=== PATIENT | female | born 1995 | race Caucasian/White ===

== ENCOUNTER → 2023-03-08 | Outpatient (CLI) | payer OTHER ==
[2023-03-08 19:47] LABS: Albumin, Blood 4.3 g/dL (3.4-5.0); Bilirubin, Total 0.5 mg/dL (0.1-1.0); Bun/Creatinine Ratio 14.7 (12.0-20.0); Calcium, Blood 9.6 mg/dL (8.5-10.1); Creatinine, Blood 0.68 mg/dL (0.40-1.00); Globulin, Blood 4.2 g/dL (2.2-4.0); Potassium, Blood 3.2 mmol/L (3.5-5.5); Total Protein, Blood 8.5 g/dL (6.4-8.2)
== END ==
LOC: LAB 12:43 → LAB SHORT 12:43
PROVIDERS: Physician Assistant
DX: B35.1 Tinea unguium (principal)
CPT/HCPCS: 80053

== ENCOUNTER → 2023-10-09 | Outpatient (CLI) | payer SELFPAY ==
[2023-10-09 10:46] LABS: BASOPHILS ABSOLUTE AUTO 0.06 K/mm3 (0.00-0.23); BASOPHILS PERCENT AUTO 1 % (0-2); EOSINOPHILS PERCENT AUTO 1 % (0-6); Hematocrit 36.5 % (33.0-51.0); Hemoglobin 12.3 g/dL (11.5-16.0); IMMATURE GRAN ABSOLUTE AUTO 0.03 K/mm3 (0.00-0.10); IMMATURE GRAN PERCENT AUTO 0 % (0-1); LYMPHOCYTES ABSOLUTE AUTO 2.09 K/mm3 (0.84-5.20); LYMPHOCYTES PERCENT AUTO 20 % (21-46); MONOCYTES PERCENT AUTO 6 % (4-13); Mean Corpuscular HGB Conc 33.7 g/dL (31.5-36.5); Mean Corpuscular Volume 89 fL (80-100); Mean Platelet Volume 9.7 fL (9.1-12.4); NEUTROPHILS ABSOLUTE AUTO 7.43 K/mm3 (1.96-9.15); NEUTROPHILS PERCENT AUTO 72 % (41-73); Platelet Count 324 K/mm3 (150-400); RDW Coefficient Variation 13.2 % (11.7-14.2); RDW Standard Deviation 43.1 fL (35.1-46.3); White Blood Cell Count 10.31 K/mm3 (4.00-11.30)
[2023-10-09 11:19] LABS: Albumin, Blood 3.5 g/dL (3.4-5.0); Albumin/Globulin Ratio 0.9 (0.8-1.8); Bilirubin, Total 0.4 mg/dL (0.1-1.0); Bun/Creatinine Ratio 15.5 (12.0-20.0); Creatinine, Blood 0.58 mg/dL (0.40-1.00); Globulin, Blood 3.9 g/dL (2.2-4.0); Potassium, Blood 3.7 mmol/L (3.5-5.5); Total Protein, Blood 7.4 g/dL (6.4-8.2)
== END | disposition home or self-care (01) ==
LOC: LAB SHORT 09:45
PROVIDERS: Physician Assistant
DX: R06.00 Dyspnea, unspecified (principal); Z33.1 Pregnant state, incidental
CPT/HCPCS: 80053; 83880; 84702; 85025; 85379

== ENCOUNTER → 2024-03-01 | Outpatient (CLI) | payer OTHER ==
[2024-03-01 10:12] LABS: Protein, Urine Quantitative 5.5 mg/dL (0.0-11.9)
== END ==
LOC: LAB 05:00 → LAB SHORT 05:00
PROVIDERS: Advanced Practice Midwife
DX: O09.91 Supervision of high risk pregnancy, unspecified, first trimester (principal)
CPT/HCPCS: 81050; 84156

== ENCOUNTER → 2024-09-17 | Outpatient (CLI) | payer OTHER | END | disposition home or self-care (01) | LOC: LAB SHORT 10:08 → LAB 10:08 | DX: O09.90 Supervision of high risk pregnancy, unspecified, unspecified trimester (principal) | CPT/HCPCS: 87081; 87150 ==

== ENCOUNTER 2024-10-15 18:52 | Inpatient (IN) | payer OTHER ==
[~2024-10-15] VITALS: Ht 167.6 cm; Wt 137.7 kg
[2024-10-15 19:21] VITALS: BP 151/79
[2024-10-15] MEDS ORDERED: OXYTOCIN/RINGER'S LACTATE 500 ML IV SCH ×2 (19:25→22:40)
[2024-10-15] MEDS ORDERED: Lactated Ringer's 1,000 ML IV SCH ×3 (19:25→20:40)
[2024-10-15] MEDS ORDERED: Misoprostol 25 MCG Tab VAG PRN (19:25)
[2024-10-15] MEDS ORDERED: ASPI81CH PO (19:47)
[2024-10-15] MEDS ORDERED: PRENATAL TABLE1 EAC2 PO (19:48)
[2024-10-15 20:07] LABS: BASOPHILS ABSOLUTE AUTO 0.04 K/mm3 (0.00-0.23); BASOPHILS PERCENT AUTO 0 % (0-2); EOSINOPHILS ABSOLUTE AUTO 0.07 K/mm3 (0.00-0.68); EOSINOPHILS PERCENT AUTO 1 % (0-6); Hematocrit 33.9 % (33.0-51.0); Hemoglobin 11.7 g/dL (11.5-16.0); IMMATURE GRAN ABSOLUTE AUTO 0.04 K/mm3 (0.00-0.10); IMMATURE GRAN PERCENT AUTO 0 % (0-1); LYMPHOCYTES ABSOLUTE AUTO 2.81 K/mm3 (0.84-5.20); LYMPHOCYTES PERCENT AUTO 24 % (21-46); MONOCYTES ABSOLUTE AUTO 0.78 K/mm3 (0.16-1.47); MONOCYTES PERCENT AUTO 7 % (4-13); Mean Corpuscular HGB 30.3 pg (26.0-34.0); Mean Corpuscular HGB Conc 34.5 g/dL (31.5-36.5); Mean Corpuscular Volume 88 fL (80-100); Mean Platelet Volume 11.2 fL (9.1-12.4); NEUTROPHILS ABSOLUTE AUTO 7.78 K/mm3 (1.96-9.15); NEUTROPHILS PERCENT AUTO 68 % (41-73); Platelet Count 224 K/mm3 (150-400); RDW Coefficient Variation 13.8 % (11.7-14.2); Red Blood Cell Count 3.86 M/mm3 (3.80-5.20); White Blood Cell Count 11.52 K/mm3 (4.00-11.30)
[2024-10-15 20:10] VITALS: BP 144/75
[2024-10-15 20:30] VITALS: BP 142/70
[2024-10-15] MEDS ORDERED: Ondansetron HCl 2 MG / ML 2ML Vial IV PRN (20:40)
[2024-10-15] MEDS ORDERED: Tranexamic Acid 100 ML IV SCH (20:40)
[2024-10-15] MEDS ORDERED: Lactated Ringer's 1,000 ML IV PRN (20:40)
[2024-10-15] MEDS ORDERED: Misoprostol 200 MCG Tab BC PRN (20:40)
[2024-10-15] MEDS ORDERED: Acetaminophen 500 MG Tab PO PRN (20:40)
[2024-10-15] MEDS ORDERED: ePHEDrine Sulfate 50 MG/ML 1ML Injection XX PRN (20:40)
[2024-10-15] MEDS ORDERED: Methylergonovine Maleate 0.2MG / ML 1ML Amp IM PRN (20:40)
[2024-10-15] MEDS ORDERED: Misoprostol 200 MCG Tab PR PRN (20:40)
[2024-10-15] MEDS ORDERED: Calcium Carbonate 500 MG Tab Chew PO PRN (20:40)
[2024-10-15] MEDS ORDERED: FentaNYL 2mcg/ml-Bup 0.1% Epd 250 ML EPI PRN (20:40)
[2024-10-15] MEDS ORDERED: Oxytocin 10 Unit / ML Vial IM PRN (20:40)
[2024-10-15] MEDS ORDERED: Carboprost Tromethamine 250 MCG/ML 1ML Amp IM PRN (20:40)
[2024-10-15] MEDS ORDERED: FentaNYL Citrate 50 MCG/ML 2 ML Injection IV PRN (20:40)
[2024-10-15] MEDS ORDERED: OXYTOCIN/RINGER'S LACTATE 500 ML IV PRN (20:40)
[2024-10-15 20:45] VITALS: BP 139/78
[2024-10-15 20:51] LABS: Albumin, Blood 2.8 g/dL (3.4-5.0); Albumin/Globulin Ratio 0.7 (0.8-1.8); Bilirubin, Total 0.4 mg/dL (0.1-1.0); Bun/Creatinine Ratio 15.5 (12.0-20.0); Calcium, Blood 8.7 mg/dL (8.5-10.1); Creatinine, Blood 0.58 mg/dL (0.40-1.00); Globulin, Blood 4.2 g/dL (2.2-4.0); Potassium, Blood 3.5 mmol/L (3.5-5.5)
[2024-10-15] MEDS ORDERED: DiphenhydrAMINE HCL 25 MG Cap PO PRN (22:40)
[2024-10-15 22:55] VITALS: BP 142/77
[2024-10-16] VITALS (44 sets, daily range): BP systolic 111–158; BP diastolic 55–84
[2024-10-16] MEDS ORDERED: Lactated Ringer's 1,000 ML IV SCH ×2 (12:00)
[2024-10-16] MEDS ORDERED: ePHEDrine Sulfate 50 MG/ML 1ML Injection XX PRN (12:00)
[2024-10-16] MEDS ORDERED: FentaNYL 2mcg/ml-Bup 0.1% Epd 250 ML EPI PRN (12:00)
[2024-10-16] MEDS ORDERED: OXYTOCIN/RINGER'S LACTATE 500 ML IV SCH (15:05)
[2024-10-16] MEDS ORDERED: Misoprostol 25 MCG Tab PO SCH (22:21)
[2024-10-17] VITALS (36 sets, daily range): BP systolic 116–159; BP diastolic 56–133
[2024-10-17] MEDS ORDERED: Lactated Ringer's 1,000 ML IV SCH ×2 (12:00→18:05)
[2024-10-17] MEDS ORDERED: Azithromycin 500 MG in NS 250 ML IV SCH (16:05)
[2024-10-17] MEDS ORDERED: CeFAZolin Sodium 3,000 MG in NS 100 ML IV SCH (16:05)
[2024-10-17] MEDS ORDERED: Citric Acid/Sodium Citrate 30 ML BTL ONE (16:06)
[2024-10-17] MEDS ORDERED: Metoclopramide HCl 5MG / ML 2ML Vial ONE (16:06)
[2024-10-17] MEDS ORDERED: Lidocaine 2% 5 ML SDV ONE (16:21)
[2024-10-17] MEDS ORDERED: Oxytocin 10 Unit / ML Vial ONE (16:30)
[2024-10-17] MEDS ORDERED: Tranexamic Acid 100 ML IV ONE (16:49)
[2024-10-17] MEDS ORDERED: Midazolam HCl 1MG / ML 2ML Vial ONE (17:09)
[2024-10-17] MEDS ORDERED: FentaNYL Citrate 50 MCG/ML 2 ML Injection ONE (17:09)
[2024-10-17 17:25] LABS: PCO2 Cord - Arterial 48.7 mmHg (40-50); PO2 Cord - Arterial 31.7 mmHg (16-20)
[2024-10-17 17:26] LABS: PO2 Cord - Venous 15.7 mmHg (28-32); pH Umbilical Cord - Venous 7.29 (7.26-7.35)
[2024-10-17] MEDS ORDERED: Simethicone 80 MG Chew PO PRN (18:00)
[2024-10-17] MEDS ORDERED: DiphenhydrAMINE HCL 25 MG Cap PO PRN (18:00)
[2024-10-17] MEDS ORDERED: Promethazine HCl 25 MG Tab PO PRN (18:00)
[2024-10-17] MEDS ORDERED: Ketorolac Tromethamine 30mg Vial IV SCH (18:00)
[2024-10-17] MEDS ORDERED: Acetaminophen 500 MG Tab PO PRN (18:05)
[2024-10-17] MEDS ORDERED: Ondansetron HCl 2 MG / ML 2ML Vial IV PRN (18:05)
[2024-10-17] MEDS ORDERED: Carboprost Tromethamine 250 MCG/ML 1ML Amp IM PRN (18:05)
[2024-10-17] MEDS ORDERED: Misoprostol 200 MCG Tab PR PRN (18:05)
[2024-10-17] MEDS ORDERED: Magnesium Hydroxide Conc 10 ML UDC PO PRN (18:05)
[2024-10-17] MEDS ORDERED: Metoclopramide HCl 10 MG Tab PO PRN (18:05)
[2024-10-17] MEDS ORDERED: Lanolin Cream TOP PRN (18:10)
[2024-10-17] MEDS ORDERED: OxyCODONE HCL 5 MG TAB PO PRN (18:10)
[2024-10-17] MEDS ORDERED: FentaNYL Citrate 50 MCG/ML 2 ML Injection IV ONE (19:00)
[2024-10-17] MEDS ORDERED: FentaNYL Citrate 50 MCG/ML 2 ML Injection IV PRN (19:00)
--- NOTE | 2024-10-17 19:18 | NUR ---
10/17/241917 LATASHA ORTIZ VIABLE FEMALE BORN AT 1641. APGARS 9/9. CORD GASSES SENT WITH RT FLY GRIFFIN.
[2024-10-17] MEDS ORDERED: fentaNYL citrate 20 MCG/ML 30MLSYR IV PRN (20:10)
[2024-10-17] MEDS ORDERED: FentaNYL Citrate 50 MCG/ML 2 ML Injection IV SCH (20:20)
[2024-10-17] MEDS ORDERED: Docusate Sodium 100 MG Cap PO SCH (21:00)
[2024-10-17 22:21] LABS: Hematocrit 26.3 % (33.0-51.0); Hemoglobin 9.2 g/dL (11.5-16.0); Mean Corpuscular HGB 30.1 pg (26.0-34.0); Mean Corpuscular Volume 86 fL (80-100); Mean Platelet Volume 10.9 fL (9.1-12.4); Platelet Count 205 K/mm3 (150-400); RDW Coefficient Variation 14.1 % (11.7-14.2); RDW Standard Deviation 43.8 fL (35.1-46.3); Red Blood Cell Count 3.06 M/mm3 (3.80-5.20); White Blood Cell Count 23.03 K/mm3 (4.00-11.30)
[2024-10-17 22:58] LABS: Prothrombin Time Results 10.7 Sec (9.7-11.5)
[2024-10-18] VITALS (9 sets, daily range): BP systolic 100–132; BP diastolic 49–60
[2024-10-18] MEDS ORDERED: Ibuprofen 400 MG Tab PO SCH
[2024-10-18 06:05] LABS: BASOPHILS ABSOLUTE AUTO 0.04 K/mm3 (0.00-0.23); BASOPHILS PERCENT AUTO 0 % (0-2); EOSINOPHILS ABSOLUTE AUTO 0.04 K/mm3 (0.00-0.68); EOSINOPHILS PERCENT AUTO 0 % (0-6); Hematocrit 24.1 % (33.0-51.0); Hemoglobin 8.4 g/dL (11.5-16.0); IMMATURE GRAN ABSOLUTE AUTO 0.12 K/mm3 (0.00-0.10); IMMATURE GRAN PERCENT AUTO 1 % (0-1); LYMPHOCYTES ABSOLUTE AUTO 2.33 K/mm3 (0.84-5.20); LYMPHOCYTES PERCENT AUTO 14 % (21-46); MONOCYTES ABSOLUTE AUTO 1.25 K/mm3 (0.16-1.47); MONOCYTES PERCENT AUTO 7 % (4-13); Mean Corpuscular HGB 30.5 pg (26.0-34.0); Mean Corpuscular HGB Conc 34.9 g/dL (31.5-36.5); Mean Corpuscular Volume 88 fL (80-100); Mean Platelet Volume 10.9 fL (9.1-12.4); NEUTROPHILS PERCENT AUTO 78 % (41-73); Platelet Count 186 K/mm3 (150-400); RDW Coefficient Variation 14.3 % (11.7-14.2); RDW Standard Deviation 45.5 fL (35.1-46.3); Red Blood Cell Count 2.75 M/mm3 (3.80-5.20); White Blood Cell Count 17.28 K/mm3 (4.00-11.30)
[2024-10-18] MEDS ORDERED: Enoxaparin 40 MG/0.4 ML SYR SC SCH (09:00)
[2024-10-18] MEDS ORDERED: Prenatal Vit/FE Fumarate/FA 1 Tab PO SCH (09:00)
[2024-10-18] MEDS ORDERED: Sod Ferric Gluc Complx/Sucrose 125 MG in NS 100 ML IV SCH (09:00)
--- NOTE | 2024-10-18 10:28 | NUR ---
SHIP'S OFFICER OFF. PT ATE BREAKFAST AND TOOK PO ROXICODONE. WILL MONITOR PAIN TO ENSURE EFFECTIVENESS. PT MOTIVATED TO TRY TO GET UP TO STAND LATER THIS AFTERNOON, BUT IS FEELING SLIGHTLY LIGHTHEADED AT THE MOMENT. DISCUSSED WITH PT LARGE BLOOD LOSS AND SYMPTOMS OFTEN ASSOCIATED WITH THAT. WILL CONTINUE TO MONITOR SYMPTOMS AND LABS. DR. KNIGHT CALLED EARLIER THIS MORNING AND WILL ROUND ON PT THIS AFTERNOON.
[2024-10-19 00:35] VITALS: BP 103/46
[2024-10-19 03:02] VITALS: BP 121/67
[2024-10-19 09:30] VITALS: BP 128/74
[2024-10-19] MEDS ORDERED: OXYC5 PO (11:19)
[2024-10-19] MEDS ORDERED: ACET500 PO (11:19)
[2024-10-19] MEDS ORDERED: IBUP800 PO (11:19)
[2024-10-19 11:56] VITALS: BP 119/63
--- NOTE | 2024-10-19 12:58 | NUR ---
Printed d/c instructions and teaching reviewed w/pt and , questions answered to their satisfaction. Verbalize understanding of follow up and printed instructions. No acute changes t/o shift. ID bands matched w/nb and verification form. Pt d/c'd home ambulatory to care of .
== END 2024-10-19 12:15 | disposition home or self-care (01) | DRG 786 ==
LOC: OBS 18:52 → BC 18:55 → OBS 18:58 → BC 10-16 22:37
PROVIDERS: ADMIT Obstetrics & Gynecology
PROC: 4A1HXCZ Monitoring of Products of Conception, Cardiac Rate, External Approach (ICD-10-PCS; 2024-10-15)
PROC: 10H07YZ Insertion of Other Device into Products of Conception, Via Natural or Artificial Opening (ICD-10-PCS; 2024-10-16)
PROC: 10907ZC Drainage of Amniotic Fluid, Therapeutic from Products of Conception, Via Natural or Artificial Opening (ICD-10-PCS; 2024-10-16)
PROC: 10D00Z1 Extraction of Products of Conception, Low, Open Approach (ICD-10-PCS; principal; 2024-10-17 16:00)
DX: O10.92 Unspecified pre-existing hypertension complicating childbirth (principal); O45.93 Premature separation of placenta, unspecified, third trimester; O99.354 Diseases of the nervous system complicating childbirth; D62 Acute posthemorrhagic anemia; O99.214 Obesity complicating childbirth; G47.33 Obstructive sleep apnea (adult) (pediatric); O76 Abnormality in fetal heart rate and rhythm complicating labor and delivery; O90.81 Anemia of the puerperium; O63.1 Prolonged second stage (of labor); Z3A.40 40 weeks gestation of pregnancy; Z37.0 Single live birth; Z79.82 Long term (current) use of aspirin; Z88.8 Allergy status to other drugs, medicaments and biological substances
CPT/HCPCS: 36415; 51702; 80053; 82803; 85025; 85027; 85384; 85610; 85730; 86850; 86900; 86901; 86923; A9270; J0456; J1650; J1885; J2250; J2405; J2590; J2765; J2916; J3010; J7050; J7120

== ENCOUNTER 2024-10-26 21:44 | Inpatient (IN) | payer OTHER ==
[~2024-10-26] VITALS: Ht 167.6 cm; Wt 130.0 kg
[~2024-10-26 21:44] MED LIST: ACET500 PO; ASPI81CH PO; IBUP800 PO; OXYC5 PO; PRENATAL TABLE1 EAC2 PO
[2024-10-26 21:57] VITALS: BP 172/87
[2024-10-26 22:02] VITALS: BP 150/88
[2024-10-26 22:17] VITALS: BP 173/82
[2024-10-26] MEDS ORDERED: NIFEdipine 10 MG Cap ONE (22:26)
[2024-10-26] MEDS ORDERED: Magnesium Sulfate 500 ML IV SCH (22:40)
[2024-10-26] MEDS ORDERED: Lactated Ringer's 1,000 ML IV SCH (22:40)
[2024-10-26] MEDS ORDERED: Magnesium Sulf 2 GM/Water 50ML 50 ML IV SCH (22:40)
[2024-10-26] MEDS ORDERED: Calcium Gluconate 0.465 mEq/ml 10 ml Vial IV PRN (22:40)
[2024-10-26 23:03] LABS: BASOPHILS ABSOLUTE AUTO 0.06 K/mm3 (0.00-0.23); BASOPHILS PERCENT AUTO 1 % (0-2); EOSINOPHILS ABSOLUTE AUTO 0.11 K/mm3 (0.00-0.68); EOSINOPHILS PERCENT AUTO 1 % (0-6); Hematocrit 26.9 % (33.0-51.0); IMMATURE GRAN ABSOLUTE AUTO 0.36 K/mm3 (0.00-0.10); IMMATURE GRAN PERCENT AUTO 3 % (0-1); LYMPHOCYTES ABSOLUTE AUTO 2.49 K/mm3 (0.84-5.20); LYMPHOCYTES PERCENT AUTO 22 % (21-46); MONOCYTES ABSOLUTE AUTO 0.64 K/mm3 (0.16-1.47); MONOCYTES PERCENT AUTO 6 % (4-13); Mean Corpuscular HGB 29.4 pg (26.0-34.0); Mean Corpuscular HGB Conc 33.5 g/dL (31.5-36.5); Mean Corpuscular Volume 88 fL (80-100); Mean Platelet Volume 9.3 fL (9.1-12.4); NEUTROPHILS ABSOLUTE AUTO 7.83 K/mm3 (1.96-9.15); NEUTROPHILS PERCENT AUTO 68 % (41-73); NRBC ABSOLUTE 0.04 K/mm3 (0.00-0.02); NRBC Auto 0.3 /100 WBC (0.0-0.2); Platelet Count 388 K/mm3 (150-400); RDW Standard Deviation 43.1 fL (35.1-46.3); Red Blood Cell Count 3.06 M/mm3 (3.80-5.20); White Blood Cell Count 11.49 K/mm3 (4.00-11.30)
[2024-10-26] MEDS ORDERED: Acetaminophen 500 MG Tab PO PRN (23:05)
[2024-10-26] MEDS ORDERED: Ketorolac Tromethamine 30mg Vial IV PRN (23:05)
[2024-10-26 23:18] VITALS: BP 142/83
[2024-10-26 23:21] LABS: Albumin, Blood 2.9 g/dL (3.4-5.0); Albumin/Globulin Ratio 0.7 (0.8-1.8); Bilirubin, Total 0.4 mg/dL (0.1-1.0); Bun/Creatinine Ratio 9.6 (12.0-20.0); Calcium, Blood 8.9 mg/dL (8.5-10.1); Creatinine, Blood 0.62 mg/dL (0.40-1.00); Globulin, Blood 4.2 g/dL (2.2-4.0); Potassium, Blood 3.2 mmol/L (3.5-5.5); Total Protein, Blood 7.1 g/dL (6.4-8.2)
[2024-10-26 23:32] VITALS: BP 133/65
[2024-10-26] MEDS ORDERED: Ondansetron HCl 2 MG / ML 2ML Vial IV PRN (23:40)
[2024-10-26 23:47] VITALS: BP 132/63
[2024-10-27] VITALS (12 sets, daily range): BP systolic 125–148; BP diastolic 61–82
[2024-10-27] MEDS ORDERED: OxyCODONE HCL 5 MG TAB PO PRN (03:45)
[2024-10-27] MEDS ORDERED: NIFEdipine 10 MG Cap PO ONE (05:15)
[2024-10-27] MEDS ORDERED: NIFEdipine 30 MG TabCR PO SCH (09:00)
--- NOTE | 2024-10-27 11:28 | NUR ---
MAGNESIUM AND LR OFF AT [address] KNIGHT ORDER. PLAN TO MONITOR PT UNTIL 6 HOURS POST MAG AND IF TOLERATING WELL, PT WILL D/C HOME.
--- NOTE | 2024-10-27 17:43 | NUR ---
DISCHARGE INSTRUCTIONS DISCUSSED. PT AND VERBALIZED UNDERSTANDING. PT HEADACHE STILL PRESENT BUT PT GETS SOME RELIEF WITH TYLENOL. DR KNIGHT AWARE. PT ASYMPTOMATIC OTHER THAN THAT. PT HAS FOLLOW UP APPT WITH DR JEAN BAPTISTE ON Tuesday10/31/24 AND HAS ALREADY PICKED UP HER EXTENDED RELEASE NIFEDIPINE TO START TAKING IN THE AM. PT HAS EQUIPMENT AT HOME TO MONITOR BP.
== END 2024-10-27 17:40 | disposition home or self-care (01) | DRG 776 ==
LOC: OBS 21:44 → BC 22:08 → OBS 22:38 → BC 22:40
PROVIDERS: ADMIT Obstetrics & Gynecology
DX: O14.15 Severe pre-eclampsia, complicating the puerperium (principal); Z88.8 Allergy status to other drugs, medicaments and biological substances; Z79.899 Other long term (current) drug therapy; Z79.82 Long term (current) use of aspirin
CPT/HCPCS: 36415; 80053; 81003; 85025; 99214; A9270; J1885; J2405; J3475; J7120